=== PATIENT | female | born 1995 | race Caucasian/White ===

== ENCOUNTER 2017-01-15 11:45 | Emergency (ER) | payer OTHER ==
[2017-01-15 12:05] LABS: HEMOGLOBIN 12.1 gm/dl (12.3-15.3); RED BLOOD COUNT 4.13 M/UL (4.00-5.10); WHITE BLOOD COUNT 6.7 K/UL (4.5-11.0)
[2017-01-15 12:25] LABS: BUN/CREATININE RATIO 18 (0-10)
== END 2017-01-15 16:25 | disposition home or self-care (01) ==
LOC: ER1 11:45
PROVIDERS: Specialist/Technologist Athletic Trainer
DX: G40.409 Other generalized epilepsy and epileptic syndromes, not intractable, without status epilepticus (principal)
CPT/HCPCS: 70450; 80053; 80185; 80307; 81001; 82550; 84439; 84443; 84703; 85025; 93005; 99285; J7040

== ENCOUNTER 2017-02-07 11:35 | Emergency (ER) | payer OTHER | END 2017-02-07 12:23 | disposition left against medical advice (07) | LOC: ER1 11:35 | DX: Z53.21 Procedure and treatment not carried out due to patient leaving prior to being seen by health care provider (principal) ==

== ENCOUNTER 2017-03-08 09:57 | Observation (INO) | payer OTHER ==
[~2017-03-08] VITALS: Ht 160 cm; Wt 47.6 kg
[2017-03-08 10:28] LABS: HEMOGLOBIN 14.3 gm/dl (12.3-15.3); RED BLOOD COUNT 4.92 M/UL (4.00-5.10); WHITE BLOOD COUNT 7.4 K/UL (4.5-11.0)
[2017-03-08 10:51] LABS: BUN/CREATININE RATIO 14 (0-10)
[2017-03-08] MEDS ORDERED: LAMICTAL PO (16:21)
[2017-03-08] MEDS ORDERED: LAMICTAL150 MG PO (16:22)
[2017-03-08] MEDS ORDERED: KEPPRA1000 MG PO (16:22)
[2017-03-09 04:29] LABS: BUN/CREATININE RATIO 12 (0-10)
[2017-03-09 04:49] LABS: HEMOGLOBIN 11.1 gm/dl (12.3-15.3); RED BLOOD COUNT 3.87 M/UL (4.00-5.10); WHITE BLOOD COUNT 6.9 K/UL (4.5-11.0)
== END 2017-03-09 11:55 | disposition home or self-care (01) ==
LOC: ER1 09:57 → PROG CARE 15:07 → ZEROF 15:07 → PROG CARE 16:18
PROVIDERS: Emergency Medicine; ADMIT Internal Medicine
DX: G40.909 Epilepsy, unspecified, not intractable, without status epilepticus (principal); Z80.0 Family history of malignant neoplasm of digestive organs; Z88.8 Allergy status to other drugs, medicaments and biological substances; Z79.899 Other long term (current) drug therapy; Z90.89 Acquired absence of other organs
CPT/HCPCS: 36415; 70450; 71010; 80048; 80053; 80307; 81001; 84703; 85025; 87086; 93005; 96374; 99285; G0378; J2060; J7030

== ENCOUNTER 2022-07-07 16:36 | Emergency (ER) | payer OTHER ==
[~2022-07-07 16:36] MED LIST: KEPPRA1000 MG PO; LAMICTAL PO; LAMICTAL150 MG PO
[2022-07-07 17:22] LABS: RED BLOOD COUNT 4.26 M/UL (4.00-5.10); WHITE BLOOD COUNT 4.9 K/UL (4.5-11.0)
[2022-07-07 17:38] LABS: BUN/CREATININE RATIO 15 (0-10)
[2022-07-07] MEDS ORDERED: ZOFRAN ODT 4 MG4 MG PO (22:24)
== END 2022-07-07 22:35 | disposition home or self-care (01) ==
LOC: ER1 16:36
PROVIDERS: Emergency Medicine
DX: U07.1 COVID-19 (principal); D64.9 Anemia, unspecified; Z88.8 Allergy status to other drugs, medicaments and biological substances
CPT/HCPCS: 71045; 80053; 81001; 83605; 85025; 87040; 93005; 99284